=== PATIENT | male | born 1980 | race Caucasian/White ===

== ENCOUNTER 2018-01-03 17:36 | Emergency (ER) | payer MEDICAID ==
[~2018-01-03] VITALS: Ht 180.3 cm; Wt 90.9 kg
[2018-01-03 17:47] VITALS: BP 151/73; Ht 180.3 cm; Wt 90.9 kg
[2018-01-03] MEDS ORDERED: ZANAFLEX2 M1 PO (17:49)
[2018-01-03] MEDS ORDERED: HCTZ25 MG PO (17:49)
[2018-01-03] MEDS ORDERED: LISINOPRIL5 MG PO (17:49)
== END 2018-01-03 18:55 | disposition left against medical advice (07) ==
LOC: D.ER 17:36
DX: N50.811 Right testicular pain (principal)